=== PATIENT | female | born 1935 | race African-American/Black ===

== ENCOUNTER 2017-05-14 13:43 | Inpatient (IN) | payer MEDICARE, OTHER ==
[~2017-05-14] VITALS: Ht 177.8 cm; Wt 86.2 kg
[2017-05-14] MEDS ORDERED: SODIUM CHLORIDE 0.9% 10ML VIAL ONE (14:45)
[2017-05-14] MEDS ORDERED: IOHEXOL-350 100 ML BOTTLE ONE (14:45)
[2017-05-14 15:04] LABS: BASOPHILS % 0.5 % (0.0-2.0); EOSINOPHILS % 0.8 % (0.0-5.0); HEMATOCRIT. 36.6 % (36.0-48.0); HEMOGLOBIN. 11.6 g/dL (12.0-16.0); LYMPHOCYTES % 17.2 % (20.0-50.0); MEAN CORPUSCULAR HEMOGLOBIN 23.7 pg (28.0-32.0); MEAN CORPUSCULAR VOLUME 75.1 fL (81.0-99.0); MEAN PLATELET VOLUME 8.2 fl (7.4-10.4); NEUTROPHILS % 76.5 % (40.0-76.0); PLATELET 303 x1000/uL (130-400); RED BLOOD CELL COUNT 4.87 mill/uL (4.2-5.4); RED CELL DISTRIBUTION WIDTH 14.7 % (11.6-14.6)
[2017-05-14 15:08] LABS: CHLORIDE 108 mEq/L (98-107); PROTHROMBIN TIME 10.5 sec (9.4-11.6)
[2017-05-14 15:10] LABS: CARBON DIOXIDE 25 mEq/L (21-32)
[2017-05-14 16:30] LABS: CLARITY URINE TURBID (CLEAR); COLOR URINE YELLOW (YELLOW); GLUCOSE URINE NEGATIVE (NEGATIVE); KETONES URINE NEGATIVE (NEGATIVE); LEUKOCYTE ESTERASE URINE NEGATIVE (NEGATIVE); NITRITE URINE NEGATIVE (NEGATIVE); OCCULT BLOOD URINE NEGATIVE (NEGATIVE); PH URINE 8.5 (4.5-8.0); PROTEIN URINE NEGATIVE (NEGATIVE); SPECIFIC GRAVITY URINE 1.013 (1.005-1.030); UROBILINOGEN URINE 0.2 E.U./dL (0.2-1.0)
[2017-05-14] MEDS ORDERED: SODIUM CHLORIDE 0.9% 1000ML BAG (SEPSIS BOLUS) IV ONE (19:00)
[2017-05-14 22:10] VITALS: BP 149/61
[2017-05-14] MEDS ORDERED: POTASSIUM CHLORIDE 20MEQ TABLET SR PO NR (23:00)
[2017-05-14] MEDS ORDERED: CLONIDINE 0.1MG TABLET PO PRN (23:00)
[2017-05-14] MEDS ORDERED: ACETAMINOPHEN 325MG TABLET PO PRN (23:00)
[2017-05-14] MEDS: ONDANSETRON HCL 4MG/2ML VIAL IV PRN (23:26)
[2017-05-15] VITALS: BP 143/66
[2017-05-15] MEDS ORDERED: AZOPT BOTHEYE (00:12)
[2017-05-15] MEDS ORDERED: BIOT25008 PO (00:12)
[2017-05-15] MEDS ORDERED: FLUO5DRO2 LEFTEYE (00:12)
[2017-05-15] MEDS ORDERED: CHOL100044 PO (00:12)
[2017-05-15] MEDS ORDERED: CALC-1011 PO (00:12)
[2017-05-15] MEDS ORDERED: BETA55 EACHEYE (00:12)
[2017-05-15] MEDS ORDERED: PRED10DR RIGHTEYE (00:12)
[2017-05-15] MEDS ORDERED: [UNRECOGNIZED DRUG - CODE] PO (00:12)
[2017-05-15] MEDS ORDERED: FISH1CAP34 PO (00:12)
[2017-05-15] MEDS ORDERED: LORA10TA7 PO (00:12)
[2017-05-15 04:00] VITALS: BP 120/50
[2017-05-15] MEDS: ONDANSETRON HCL 4MG/2ML VIAL IV PRN (06:22)
[2017-05-15 07:38] LABS: BASOPHILS % 0.2 % (0.0-2.0); EOSINOPHILS % 0.1 % (0.0-5.0); HEMATOCRIT. 38.1 % (36.0-48.0); HEMOGLOBIN. 12.2 g/dL (12.0-16.0); LYMPHOCYTES % 13.4 % (20.0-50.0); MEAN CORPUSCULAR VOLUME 74.6 fL (81.0-99.0); MEAN PLATELET VOLUME 8.7 fl (7.4-10.4); MONOCYTES % 6.5 % (2.0-8.0); NEUTROPHILS % 79.8 % (40.0-76.0); PLATELET 294 x1000/uL (130-400); RED CELL DISTRIBUTION WIDTH 14.4 % (11.6-14.6)
[2017-05-15 07:39] VITALS: BP 137/61
[2017-05-15] MEDS ORDERED: ENOXAPARIN 40MG/0.4ML SYR SUBCUT SCH (09:00)
[2017-05-15] MEDS ORDERED: ASPIRIN 81MG TABLET PO SCH (09:00)
[2017-05-15] MEDS ORDERED: PREDNISOLONE ACETATE 1% OPHTH DROPS 1ML RIGHTEYE SCH (09:00)
[2017-05-15] MEDS ORDERED: MEDICATION NOT ON FORMULARY EA (Brinzolamide (Azopt) 1 ML) BOTHEYE SCH (09:00)
[2017-05-15] MEDS ORDERED: LORATADINE 10MG TABLET PO SCH (09:00)
[2017-05-15] MEDS ORDERED: DORZOLAMIDE 2% OPHTH 10 ML BOTTLE BOTHEYE SCH (09:00)
[2017-05-15] MEDS ORDERED: FLUOROMETHOLONE 0.1% LEFTEYE SCH (09:00)
[2017-05-15] MEDS ORDERED: LEVOBUNOLOL 0.5% EACHEYE SCH (09:00)
[2017-05-15] MEDS ORDERED: CHOLECALCIFEROL (D3) 1000 UNIT TABLET PO SCH (09:00)
[2017-05-15 09:06] LABS: CARBON DIOXIDE 25 mEq/L (21-32); CHLORIDE 108 mEq/L (98-107)
[2017-05-15 11:29] VITALS: BP 140/65
[2017-05-15 12:00] VITALS: BP 140/65
== END 2017-05-15 15:30 | disposition home health service (06) | DRG 392 ==
LOC: ER 14:40 → 8WST 19:57 → ENRESERV 20:39
PROVIDERS: ADMIT Hospitalist; ATTEND Hospitalist
DX: A08.4 Viral intestinal infection, unspecified (principal); E87.2 Acidosis; E86.0 Dehydration; I10 Essential (primary) hypertension; E87.6 Hypokalemia; Z85.3 Personal history of malignant neoplasm of breast; Z98.49 Cataract extraction status, unspecified eye; Z90.49 Acquired absence of other specified parts of digestive tract; Z95.820 Peripheral vascular angioplasty status with implants and grafts; Z90.10 Acquired absence of unspecified breast and nipple; Z85.41 Personal history of malignant neoplasm of cervix uteri
CPT/HCPCS: 36415; 71010; 74174; 80053; 81001; 83605; 83690; 84484; 85025; 85610; 85730; 87040; 93005; 97162; 97535; 99285; A4216; J1650; J2405; J7050; Q9967